=== PATIENT | female | born 1995 | race Caucasian/White ===

== ENCOUNTER 2018-08-24 21:07 | Emergency (ER) | payer BC, OTHER ==
[~2018-08-24] VITALS: Ht 152.4 cm; Wt 67.2 kg
[2018-08-24] MEDS ORDERED: DIPHENHYDRAMINE 50 MG/ML, 1ML IM ONE (21:30)
[2018-08-24] MEDS ORDERED: DIPHENHYDRAMINE 50 MG/ML, 1ML ONE (21:32)
--- NOTE | 2018-08-24 21:48 | NUR ---
PT MEDICATED WITH BENADRYL PER APR, PT STATES UNABLE TO SWALLOW PREDNISONE. HOLDING PREDNISONE AT THIS TIME. MD THEN ASSESS PT AND STATES HE BELIEVES THAT PT IS NOT HAVING AN ALLERGIC REACTION BUT INSTEAD HAS A PIECE OF CHICKEN STUCK IN HER THROAT. POC DISCUSSED. AWAITING CALL BACK FROM GI AT THIS TIME.
--- NOTE | 2018-08-24 22:34 | NUR ---
PT CONNECTED TO ALL MONITORING. POC DISCUSSED. PT WORRIED ABOUT PROCEDURE DUE TO HAVING A FULL STOMACH. REASSURANCE GIVEN, COMFORT MEASURES PROVIDED. PT AND SISTER DENY FURTHER NEEDS AT THIS TIME. AWAITING ENDO ARRIVAL.
[2018-08-24] MEDS ORDERED: PROPOFOL 10 MG/ML, 20ML ONE ×2 (22:40→23:24)
[2018-08-24] MEDS ORDERED: PROPOFOL 10 MG/ML, 20ML IVPush ONE (23:00)
--- NOTE | 2018-08-24 23:03 | NUR ---
ENDO HAS ARRIVED. CONSENT SIGNED BY , THIS RN, AND PT. POC DISCUSSED. PT DENIES FURTHER NEEDS AT TIME.
[2018-08-24] MEDS ORDERED: FENTANYL PF 100 MCG/2ML ONE (23:25)
[2018-08-24] MEDS ORDERED: ONDANSETRON 2MG/ML, 2ML ONE (23:48)
--- NOTE | 2018-08-25 00:03 | NUR ---
ER MD PERFORMED SEDATION. PT DIFFICULT TO SEDATE. PT RECEIVED A TOTAL OF 350MG PROPOFOL AND 25MCG FENTANYL. POST SEDATION PT DRY HEAVING. 4MG ZOFRAN GIVEN. AWAITING PT TO WAKE UP
--- NOTE | 2018-08-25 00:16 | NUR ---
PTS SISTER HAS RETURNED TO BEDSIDE. POC DISCUSSED. PT NOW VERBAL AND ANSWERS APPROPRIATELY HOWEVER REMAINS LETHARGIC.
--- NOTE | 2018-08-25 00:34 | NUR ---
PT AWAKE WITH EYES OPEN. RESPONDS APPROPRIATE VERBALLY. HOWEVER REMAINS LETHARGIC. SISTER AT BEDSIDE. PT AND SISTER DENY NEEDS AT THIS TIME.
[2018-08-25] MEDS ORDERED: ONDANSETRON 2MG/ML, 2ML IVPush ONE (01:00)
[2018-08-25] MEDS ORDERED: PROPOFOL 10 MG/ML, 20ML IVPush ONE (01:00)
[2018-08-25] MEDS ORDERED: FENTANYL PF 100 MCG/2ML IV ONE (01:00)
[2018-08-25 01:05] VITALS: BP 11/68
--- NOTE | 2018-08-25 01:05 | NUR ---
PT NOW AWAKE AND STATING SHE FEELS WELL ENOUGH TO LEAVE. PT ABLE OT AMBULATE INDEPENDENTLY. POC DISCUSSED. PT DC'D WITH SISTER.
== END 2018-08-25 01:34 | disposition home or self-care (01) ==
LOC: ED 08-25 01:13
DX: T18.128A Food in esophagus causing other injury, initial encounter (principal); R13.14 Dysphagia, pharyngoesophageal phase; Z87.19 Personal history of other diseases of the digestive system; X58.XXXA Exposure to other specified factors, initial encounter; Y93.89 Activity, other specified; Y92.89 Other specified places as the place of occurrence of the external cause; Y99.8 Other external cause status
CPT/HCPCS: 43239; 43249; 88305; 96372; 96374; 96375; 99152; 99285; C1725; J1200; J2405; J2704; J3010

== ENCOUNTER 2018-08-25 16:32 | Emergency (ER) | payer BC ==
[~2018-08-25] VITALS: Ht 152.4 cm; Wt 66.8 kg
--- NOTE | 2018-08-25 17:01 | NUR ---
Patient to room from lobby at this time
[2018-08-25 18:01] LABS: BASOPHILS # (AUTO) 0.07 x10^3/uL (0-0.1); BASOPHILS % (AUTO) 1 % (0-1); EOSINOPHILS % (AUTO) 7 % (1-7); LYMPHOCYTES # (AUTO) 2.12 x10^3/uL (1-3.4); LYMPHOCYTES % (AUTO) 21 % (22-44); MD NO; MEAN CORPUSCULAR HEMOGLOBIN 30.2 pg (27.0-34.8); MEAN CORPUSCULAR HGB CONC 33.3 g/dL (32.4-35.8); MEAN CORPUSCULAR VOLUME 90.8 fL (80-100); MEAN PLATELET VOLUME 10.2 fL (7.4-10.4); MONOCYTES # (AUTO) 0.86 x10^3/uL (0.2-0.8); MONOCYTES % (AUTO) 9 % (2-9); NEUTROPHILS # (AUTO) 6.24 x10^3/uL (1.8-6.8); NEUTROPHILS % (AUTO) 63 % (42-75); PLATELET COUNT 216 x10^3/uL (130-400); RED BLOOD COUNT 4.63 x10^6/uL (3.82-5.3); RED CELL DISTRIBUTION WIDTH 13.8 % (9.6-15.2)
[2018-08-25 18:08] LABS: ALBUMIN 4.1 g/dL (3.4-5.0); ANION GAP 10 mmol/L (5-15); CALCIUM 8.8 mg/dL (8.5-10.1); CHLORIDE 107 mmol/L (98-107); CREATININE 0.88 mg/dL (0.55-1.02)
[2018-08-25 19:28] VITALS: BP 103/59
== END 2018-08-25 19:31 | disposition home or self-care (01) ==
LOC: ED 18:31
DX: R07.2 Precordial pain (principal); Z91.018 Allergy to other foods; Z91.013 Allergy to seafood
CPT/HCPCS: 36415; 71045; 71250; 80048; 82040; 85025; 93005; 99284

== ENCOUNTER 2019-02-03 05:28 | Inpatient (IN) | payer BC ==
[2019-02-01 15:25] LABS: BASOPHILS # (AUTO) 0.05 x10^3/uL (0-0.1); BASOPHILS % (AUTO) 1 % (0-1); EOSINOPHILS % (AUTO) 7 % (1-7); LYMPHOCYTES # (AUTO) 2.94 x10^3/uL (1-3.4); LYMPHOCYTES % (AUTO) 28 % (22-44); MD NO; MEAN CORPUSCULAR HEMOGLOBIN 30.5 pg (27.0-34.8); MEAN CORPUSCULAR VOLUME 92.4 fL (80-100); MEAN PLATELET VOLUME 9.8 fL (7.4-10.4); MONOCYTES # (AUTO) 0.73 x10^3/uL (0.2-0.8); MONOCYTES % (AUTO) 7 % (2-9); NEUTROPHILS # (AUTO) 6.23 x10^3/uL (1.8-6.8); NEUTROPHILS % (AUTO) 59 % (42-75); PLATELET COUNT 252 x10^3/uL (130-400); RED BLOOD COUNT 4.56 x10^6/uL (3.82-5.3); RED CELL DISTRIBUTION WIDTH 13.7 % (9.6-15.2)
[2019-02-01 15:30] LABS: ANION GAP 8 mmol/L (5-15); CALCIUM 8.5 mg/dL (8.5-10.1); CHLORIDE 111 mmol/L (98-107); CREATININE 0.93 mg/dL (0.55-1.02)
[2019-02-01 16:01] LABS: MICROSCOPIC NOT IND
[2019-02-01 16:07] LABS: CULTURE INDICATED? NO
[2019-02-01 16:30] LABS: INTERNATIONAL NORMALIZED RATIO 0.99 (0.93-1.1); PROTHROMBIN TIME 10.4 Seconds (9.6-11.5)
[~2019-02-03] VITALS: Ht 152.4 cm; Wt 64.6 kg
[~2019-02-03 05:28] MED LIST: BUDESONIDE PO; PANT40TA5 PO
[2019-02-03] MEDS ORDERED: LACTATED RINGERS 1,000 ML IV SCH (06:05)
[2019-02-03 06:09] VITALS: BP 114/78
[2019-02-03 06:18] LABS: HCG UR SG 1.018 (1.003-1.030)
[2019-02-03] MEDS ORDERED: VANCOMYCIN 1,000 MG ONE (06:20)
[2019-02-03] MEDS ORDERED: BUPIVACAINE/PF 0.5% ONE ×3 (06:20→10:41)
[2019-02-03] MEDS ORDERED: THROMBIN 5,000 UNIT VIAL TP ONE (06:20)
[2019-02-03] MEDS ORDERED: EPINEPHRINE 1 MG/ML, 1ML ONE (06:21)
[2019-02-03] MEDS ORDERED: BACITRACIN 50,000 UNIT ONE (06:21)
[2019-02-03] MEDS ORDERED: LIDOCAINE-MPF 1%, 2ML INFIL ONE (06:30)
[2019-02-03] MEDS ORDERED: MIDAZOLAM 1 MG/ML, 2ML ONE (06:55)
[2019-02-03] MEDS ORDERED: GABAPENTIN 300 MG CAPSULE PO ONE (07:00)
[2019-02-03] MEDS ORDERED: ACETAMINOPHEN 500 MG TABLET PO ONE (07:00)
[2019-02-03] MEDS ORDERED: SCOPOLAMINE PATCH, 1.5MG PATCH.TD72 TD ONE (07:00)
[2019-02-03] MEDS ORDERED: GABAPENTIN 300 MG CAPSULE ONE (07:01)
[2019-02-03] MEDS ORDERED: FENTANYL PF 250 MCG/5ML ONE (07:05)
[2019-02-03] MEDS ORDERED: hydrALAzine 20 MG/ML, 1ML IV PRN (08:00)
[2019-02-03] MEDS ORDERED: HYDROmorphone 2 MG/ML, 1ML IVPush PRN (08:00)
[2019-02-03] MEDS ORDERED: ALBUTEROL SULFATE 2.5 MG/3 ML NPPB PRN (08:00)
[2019-02-03] MEDS ORDERED: KETOROLAC 30 MG/1 ML IV PRN (08:00)
[2019-02-03] MEDS ORDERED: ACETAMINOPHEN 325 MG TABLET PO PRN (08:00)
[2019-02-03] MEDS ORDERED: DIAZEPAM 5 MG/ML, 2ML IVPush PRN (08:00)
[2019-02-03] MEDS ORDERED: FENTANYL PF 100 MCG/2ML IV PRN (08:00)
[2019-02-03] MEDS ORDERED: MEPERIDINE/PF 25MG/0.5ML IVPush PRN (08:00)
[2019-02-03] MEDS ORDERED: LABETALOL 5MG/ML, 20ML IV PRN (08:00)
[2019-02-03] MEDS ORDERED: OXYcodone 5 MG/5 ML ORAL.SOL UDC PO PRN (08:00)
[2019-02-03] MEDS ORDERED: PROMETHAZINE 25 MG/ML, 1ML IV PRN (08:00)
[2019-02-03] MEDS ORDERED: ROCURONIUM 10MG/ML,5ML ONE (10:11)
[2019-02-03] MEDS ORDERED: PROPOFOL 10 MG/ML, 20ML ONE (10:11)
[2019-02-03] MEDS ORDERED: NEOSTIGMINE 1 MG/ML, 10ML ONE (10:11)
[2019-02-03] MEDS ORDERED: SUCCINYLCHOLINE 20 MG/ML, 10ML ONE (10:11)
[2019-02-03] MEDS ORDERED: CEFAZOLIN 1,000 MG ONE (10:11)
[2019-02-03] MEDS ORDERED: DEXAMETHASONE 4 MG/ML, 1ML ONE (10:11)
[2019-02-03] MEDS ORDERED: GLYCOPYRROLATE 0.2MG/1ML, 5ML ONE (10:11)
[2019-02-03] MEDS ORDERED: ONDANSETRON 2MG/ML, 2ML ONE (10:11)
[2019-02-03] MEDS ORDERED: PROMETHAZINE 25 MG/ML, 1ML ONE (10:47)
[2019-02-03] MEDS ORDERED: MEPERIDINE/PF 25MG/ML,1ML ONE (10:51)
[2019-02-03] MEDS ORDERED: METHOCARBAMOL 1,000 MG in DEXTROSE 5% 100 ML IV ONE (11:30)
[2019-02-03 13:10] VITALS: BP 116/70
[2019-02-03] MEDS ORDERED: METHOCARBAMOL 750 MG TABLET PO PRN (13:30)
[2019-02-03] MEDS ORDERED: BISACODYL 10 MG SUPP PR PRN (13:30)
[2019-02-03] MEDS ORDERED: DIPHENHYDRAMINE 50 MG/ML, 1ML IM PRN (13:30)
[2019-02-03] MEDS ORDERED: HYDROcodone/APAP 5/325 TABLET PO PRN (13:30)
[2019-02-03] MEDS ORDERED: DIPHENHYDRAMINE 25 MG CAPSULE PO PRN (13:30)
[2019-02-03] MEDS ORDERED: PROMETHAZINE 25 MG/ML, 1ML IM PRN (13:30)
[2019-02-03] MEDS ORDERED: HYDROmorphone 2MG TABLET PO PRN (13:30)
[2019-02-03] MEDS ORDERED: HYDROmorphone 2 MG/ML, 1ML IM PRN (13:30)
[2019-02-03] MEDS ORDERED: DIPHENHYDRAMINE 50 MG/ML, 1ML IVPush PRN (13:30)
[2019-02-03] MEDS ORDERED: MAGNESIUM HYDROXIDE 8%, 30ML UDC PO PRN (13:30)
[2019-02-03] MEDS ORDERED: ONDANSETRON 2MG/ML, 2ML IV PRN (13:30)
[2019-02-03] MEDS: D5%-0.9% NACL+KCL 20MEQ 1,000 ML IV SCH (14:50)
[2019-02-03] MEDS: CEFAZOLIN PMX 1GM/50ML 50 ML IVPB SCH ×2 (16:07→23:48)
[2019-02-03] MEDS: OXYcodone/APAP 5/325MG TABLET PO PRN ×2 (16:26→17:38)
[2019-02-03 20:02] VITALS: BP 102/64
[2019-02-03] MEDS: BUDESONIDE 0.5 MG/2 ML INHA NPPB SCH (21:00)
[2019-02-03 23:05] VITALS: BP 95/51
[2019-02-04] MEDS: D5%-0.9% NACL+KCL 20MEQ 1,000 ML IV SCH ×3 (00:15→19:30)
[2019-02-04 02:15] VITALS: BP 103/65
[2019-02-04] MEDS: OXYcodone/APAP 5/325MG TABLET PO PRN ×3 (02:21→16:15)
[2019-02-04] MEDS: ENOXAPARIN 40 MG/0.4 ML SQ SCH ×3 (06:00→20:22)
[2019-02-04] MEDS: PANTOPROZOLE 40MG TABLET PO SCH (06:05)
[2019-02-04 08:00] VITALS: BP 102/55
[2019-02-04 08:02] VITALS: BP 102/55
[2019-02-04] MEDS: SENNA/DOCUSATE TABLET PO SCH (08:04)
[2019-02-04] MEDS: BUDESONIDE 0.5 MG/2 ML INHA NPPB SCH (09:00)
[2019-02-04 12:10] VITALS: BP 108/66
[2019-02-04 18:58] VITALS: BP 111/64
[2019-02-05] MEDS: OXYcodone/APAP 5/325MG TABLET PO PRN (01:30)
[2019-02-05] MEDS ORDERED: BUDESONIDE MC SCH (01:30)
[2019-02-05 01:50] VITALS: BP 105/68
[2019-02-05] MEDS: D5%-0.9% NACL+KCL 20MEQ 1,000 ML IV SCH (05:11)
[2019-02-05] MEDS: PANTOPROZOLE 40MG TABLET PO SCH (06:31)
[2019-02-05 06:43] VITALS: BP 100/62
[2019-02-05] MEDS: SENNA/DOCUSATE TABLET PO SCH (08:34)
[2019-02-05] MEDS ORDERED: BUDESONIDE 0.5 MG/2 ML INHA INH SCH (09:00)
[2019-02-05 10:18] VITALS: BP 99/65
[2019-02-05] MEDS ORDERED: OXYC-302 PO (11:30)
[2019-02-05] MEDS ORDERED: METH750T87 PO (11:30)
== END 2019-02-05 11:48 | disposition home or self-care (01) | DRG 455 ==
LOC: ORIP 05:28 → 3WST 12:24 → 4NE 02-04 17:52 → DCLOUNGE 02-05 11:40
PROVIDERS: ADMIT Neurological Surgery; ATTEND Neurological Surgery
PROC: 0SG33K1 Fusion of Lumbosacral Joint with Nonautologous Tissue Substitute, Posterior Approach, Posterior Column, Percutaneous Approach (ICD-10-PCS; 2019-02-03)
PROC: 0ST40ZZ Resection of Lumbosacral Disc, Open Approach (ICD-10-PCS; 2019-02-03)
PROC: 0SG30A0 Fusion of Lumbosacral Joint with Interbody Fusion Device, Anterior Approach, Anterior Column, Open Approach (ICD-10-PCS; principal; 2019-02-03 07:00)
DX: M48.07 Spinal stenosis, lumbosacral region (principal); M43.17 Spondylolisthesis, lumbosacral region; M47.817 Spondylosis without myelopathy or radiculopathy, lumbosacral region; M54.16 Radiculopathy, lumbar region
CPT/HCPCS: 36415; 72100; 74018; J7626; S0020; 71046; 80048; 81003; 81025; 85025; 85610; 85730; 93005; 94640; C1713; C1767; C1776; G0378; J0171; J0690; J1100; J1650; J2175; J2250; J2405; J2550; J2704; J2710; J3010; J3370; C1763; J0330; J2800; J3480